=== PATIENT | female | born 1995 | race Caucasian/White ===

== ENCOUNTER 2018-06-03 16:32 | Emergency (ER) | payer OTHER ==
[2018-06-03 18:17] VITALS: BP 121/74
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
== END 2018-06-03 18:27 | disposition home or self-care (01) ==
LOC: ER 16:32
DX: O9A.211 Injury, poisoning and certain other consequences of external causes complicating pregnancy, first trimester (principal); O26.891 Other specified pregnancy related conditions, first trimester; R10.30 Lower abdominal pain, unspecified; X58.XXXA Exposure to other specified factors, initial encounter; Z3A.12 12 weeks gestation of pregnancy
CPT/HCPCS: 99283

== ENCOUNTER 2018-11-30 16:49 | Inpatient (IN) | payer OTHER ==
[2018-11-30 17:34] LABS: HEMATOCRIT 29.6 % (36.0-47.0); HEMOGLOBIN 9.4 g/dL (12.0-15.5); MEAN CORPUSCULAR HEMOGLOBIN 23.5 pg (27.0-33.4); MEAN CORPUSCULAR HGB CONC 31.8 g/dL (32.0-36.0); MEAN CORPUSCULAR VOLUME 74 fl (80-97); PLATELET COUNT 196 10^3/uL (150-450); RED CELL DISTRIBUTION WIDTH 18.2 % (11.5-14.0); WHITE BLOOD COUNT 7.6 10^3/uL (4.0-10.5)
[2018-11-30 17:45] LABS: APPEARANCE,URINE CLOUDY; BILIRUBIN,URINE NEGATIVE (NEGATIVE); COLOR,URINE YELLOW; GLUCOSE, URINE NEGATIVE (NEGATIVE); KETONES,URINE NEGATIVE (NEGATIVE); LEUKOCYTE ESTERASE,URINE SMALL (NEGATIVE); NITRITE,URINE NEGATIVE (NEGATIVE); PROTEIN,URINE NEGATIVE (NEGATIVE); URINE SPECIFIC GRAVITY 1.011; UROBILINOGEN,URINE NEGATIVE mg/dL (<2.0)
[2018-11-30 17:53] LABS: ALANINE AMINOTRANSFERASE 18 U/L (9-52); ALBUMIN 3.3 g/dL (3.5-5.0); ALKALINE PHOSPHATASE 187 U/L (38-126); ANION GAP 10 (5-19); ASPARTATE AMINO TRANSFERASE 15 U/L (14-36); BILIRUBIN,DIRECT 0.2 mg/dL (0.0-0.4); BILIRUBIN,TOTAL 0.3 mg/dL (0.2-1.3); BLOOD UREA NITROGEN 11 mg/dL (7-20); CALCIUM 8.9 mg/dL (8.4-10.2); CARBON DIOXIDE 21 mmol/L (22-30); CHLORIDE 107 mmol/L (98-107); GLUCOSE 77 mg/dL (75-110); POTASSIUM 4.4 mmol/L (3.6-5.0); SODIUM 137.8 mmol/L (137-145); TOTAL PROTEIN 6.3 g/dL (6.3-8.2); URIC ACID 5.9 mg/dL (2.5-6.2)
--- NOTE | 2018-11-30 17:53 | Non Stress Test Report ---
Non Stress Test Datetime Report Generated by CPN: 11/30/2018 17:53 DEMOGRAPHIC EGA NST: 37.4 INDICATION Indication for Study: Ordered by Provider MONITORING Monitor Explained: Monitor Explained; Test Explained; Patient Verbalized Understanding Time on Monitor: 11/30/2018 17:03 Time off Monitor: 11/30/2018 17:52 NST Duration: 49 NST INTERVENTIONS NST Interventions: PO Hydration Physician Notified NST: Dr. Parisi BABY A: [id number] BABY A Movement : Present Contraction Frequency : none FHR Baseline : 120 Accelerations : 15X15 Decelerations : None Variability : Moderate 6-25bpm NST Review: Meets Criteria for Reactive NST NST Review and Verified By : Eveline Worrell RN NST Results: Reactive NST REPORT Report Trigger: Send Report
[2018-11-30 18:03] LABS: URINE AMPHETAMINES SCREEN NEGATIVE; URINE BARBITURATES SCREEN NEGATIVE; URINE BENZODIAZEPINES SCREEN NEGATIVE; URINE COCAINE SCREEN NEGATIVE; URINE MARIJUANA (THC) SCREEN NEGATIVE; URINE METHADONE SCREEN NEGATIVE; URINE PHENCYCLIDINE SCREEN NEGATIVE
[2018-11-30 18:09] LABS: UR PRO/CREAT RATIO RESULT 0.3 mg/mg (0.0-0.2); URINE PROTEIN 23.2 mg/dL (<12)
[2018-11-30] MEDS ORDERED: RINGERS SOLUTION,LACTATED 1,000 ML IV ONE (19:12)
--- NOTE | 2018-11-30 19:27 | Admission Physical ---
Datetime Report Generated by CPN: 11/30/2018 19:26 CURRENT ADMISSION Chief Complaint: Other Chief Complaint Other: PreE Indication for Induction: PreEclampsia Admit Impression : Term, Intrauterine ; No Active Labor; Intact Membranes; Induction of Labor Admit Plan: Admit to Unit; Initiate Labor Induction Protocol ALLERGIES Medication Allergies: No Medication Allergies: No Known Allergies (11/30/2018) Latex: No Latex Allergies OBSTETRICAL HISTORY EDC: 12/17/2018 00:00 : 1 Para: 0 Gestational Diabetes: No Rh Sensitization: No Incompetent Cervix: No BASILIA: No Infertility: No ART Treatment: No Uterine Anomaly: No IUGR: No Hx Previous C/S: No Macrosomia: No Hx Loss/Stillborn: No PIH: No Hx : No Placenta Previa/Abruption: No Depression/PP Depression: No PTL/PROM: No Post Hemorrhage: No Current Procedures: Ultrasound Obstetrical History Comments: G1- Current SEE RECORDS Alcohol: No Marijuana : No Cocaine: No Other Illicit Drugs: No Cigarettes: Never Smoker. 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 Heart Disease: No Hosp/Surgery: No Autoimmune Disorder: No Anesthetic Complications: No Kidney Disease: No Abnormal Pap Smear: No Neuro/Epilepsy: No Psychiatric Disorders: No Other Medical Diseases: No Hepatitis/Liver Disease: No Significant Family History: No Varicosities/Phlebitis: No Trauma/Violence : No Thyroid Dysfunction: No INFECTIOUS HISTORY Gonorrhea: No Genital Herpes: No Chlamydia: No Tuberculosis: No Syphilis: No Hepatitis: No HIV/AIDS Exposure: No Rash or Viral Illness: No HPV: No PHYSICAL EXAM General: Normal HEENT: Normal Neurologic: Normal Thyroid: Normal Heart: Normal Lungs: Normal Breast: Deferred Back: Normal Abdomen: Abnormal Genitourinary Exam: Normal Extremities: Abnormal DTRs: Abnormal Pelvic Type: Adequate Physical Exam Comments: 3+ DTRs, Bilateral LE swelling. PUPPs on abdomen, gravid Vital Signs: Reviewed VAGINAL EXAM Dilatation: 1 Effacement: 25 Station: -3 Contraction Comments: irreg MEMBRANES Membranes: Intact FETUS A EGA: 37.4 Monitoring: External US FHR- Baseline: 120 Variability: Moderate 6-25bpm Accelerations: 15X15 Decelerations: None FHR Category: Category I Presentation: Vertex Admit Comment: 23yo at 37+4ega presents to labor and delivery for PreE w/u. She is having irregular ctx. She reports FULLER not improved. Brisk reflexes noted. P:C ratio elevated at 0.3 BPs now elevated 4 hours apart. BP in the office 172/108. PUPPs - normal LFTs and normal bile acids. Failed 1 hr GTT - passed 3 hr GTT. High weight gain in - 50#. EFW 5#8oz at 33wks. EFW approx 7-8#now. Admit for IOL with cytotec/pitocin/Cooks catheter. Reviewed plan with patient. Of note FOB mother is on this floor and dying of cancer. Patient and family tearful regarding dx and MIL dying but consolable and all questions answered. PLANS FOR LABOR AND DELIVERY Labor and Delivery: None Pain Management: Epidural Feeding Preference: Breast Benefit of Breast Feed Discussed: Yes Circumcision: Yes INFORMED CONSENT Informed Consent Obtained: Vaginal Delivery; Induction of Labor; Risks, Benefits and Alternatives Discussed Signature: with User ID: [email or web address]
[2018-11-30] MEDS ORDERED: MISOPROSTOL 0.1 MG TABLET ONE (21:22)
[2018-11-30] MEDS: RINGERS SOLUTION,LACTATED 1,000 ML IV PRN (21:30)
[2018-11-30] MEDS ORDERED: MISOPROSTOL 0.1 MG TABLET PO SCH (22:00)
[2018-11-30] MEDS ORDERED: MISOPROSTOL 0.1 MG TABLET PV ONE (22:00)
[2018-11-30] MEDS ORDERED: ACETAMINOPHEN 325 MG TABLET ONE (22:24)
[2018-11-30] MEDS ORDERED: ACETAMINOPHEN 325 MG TABLET PO ONE (22:59)
[2018-12-01] MEDS ORDERED: NALBUPHINE HCL INJ 10 MG/1 ML AMPULE ONE (00:23)
[2018-12-01] MEDS ORDERED: NALBUPHINE HCL INJ 10 MG/1 ML AMPULE INJ ONE (00:23)
[2018-12-01] MEDS ORDERED: OXYTOCIN/NORMAL SALINE 20 UNIT/1,000 ML RTUINJ IV PRN (01:55)
[2018-12-01] MEDS ORDERED: LIDOCAINE 1% INJ-PF (10 MG/ML) 30 ML SDV ONE (02:34)
[2018-12-01] MEDS ORDERED: OXYTOCIN 10 UNIT/ML VIAL ONE (02:34)
[2018-12-01] MEDS ORDERED: OXYTOCIN/NORMAL SALINE 20 UNIT/1,000 ML RTUINJ ONE (02:34)
[2018-12-01] MEDS ORDERED: MISOPROSTOL 0.2 MG TABLET ONE (02:34)
[2018-12-01] MEDS ORDERED: DEXTROSE 5%-LACTATED RINGERS 1,000 ML IV PRN (04:01)
[2018-12-01] MEDS ORDERED: ONDANSETRON HCL INJ/PF 4 MG/2 ML SDV IV ONE (04:02)
[2018-12-01] MEDS ORDERED: EPHEDRINE SULFATE INJ 50 MG/1 ML AMPULE ONE (17:28)
[2018-12-01] MEDS ORDERED: LIDOCAINE 1.5%/EPINEPHRINE INJ 5 ML AMP ONE (17:29)
[2018-12-01] MEDS ORDERED: FENTANYL/BUPIVACAINE/NS/PF 300 MCG/150 ML RTUINJ EPI ONE (17:29)
[2018-12-01] MEDS ORDERED: BUPIVACAINE HCL 0.25 % INJ/PF (2.5 MG/1 ML) 30 ML VIAL ONE (17:29)
[2018-12-01] MEDS: RINGERS SOLUTION,LACTATED 1,000 ML IV PRN (20:14)
[2018-12-01] MEDS ORDERED: IBUPROFEN 800 MG TABLET ONE (23:05)
--- NOTE | 2018-12-01 23:44 | Warning Signs in Babies ---
VOD Warning Signs Datetime Report Generated by [facility]: 12/01/2018 23:44 VOD#608 -Warning Signs in Babies: Viewed with Parent(s)/Family (12/01/2018 23:44:Elida Lynn RN)
--- NOTE | 2018-12-02 00:17 | Delivery Summary ---
Del Sum A-C Datetime Report Generated by CPN: 12/02/2018 00:17 DELIVERY PERSONNEL DELIVERY PERSONNEL: [id number] Delivery Doctor:: Tessy Dewitt MD Labor and Delivery Nurse:: Elida Lynn RN Nursery Nurse:: Kayla Thomas RN Broadcast Operations Manager/SCRUM PROJECT MANAGER: Mayra Ross, ST MATERNAL INFORMATION Delivery Anesthesia: Epidural Medications After Delivery: Pitocin Drip 20 Units/1000ml NSS; Cytotec 1000mcg Per Rectum/Vagina Estimated Blood Loss (ml): 200 Maternal Complications: None Provider Comments: of a viable male at 2232 w/ an OA with nuchal cord x 1 and left compound hand presentation; APGARS 7, 9; 2nd degree left vaginal lac LABOR SUMMARY EDC: 12/17/2018 00:00 No. Babies in Womb: 1 Attempted: No Labor Anesthesia: Epidural LABOR INFORMATION Reason for Induction: Pre-Eclampsia Onset of Labor: 12/01/2018 15:29 Complete Dilatation: 12/01/2018 21:45 Cervical Ripening Agents: Parada Balloon Other Ripening Agents: Cooks catheter Oxytocin: Induction Group B Beta Strep: Negative Antibiotics # of Doses: 0 Steroids Given: None Reason Steroids Not Administered: Not Applicable MEMBRANES Membranes Rupture Method: Artificial Rupture of Membranes: 12/01/2018 15:29 Length of Rupture (hr): 7.05 Amniotic Fluid Color: Clear Amniotic Fluid Amount: Large Amniotic Fluid Odor: Normal STAGES OF LABOR Stage 1 hr: 6 Stage 1 min: 16 Stage 2 hr: 0 Stage 2 min: 47 Stage 3 hr: 0 Stage 3 min: 6 Total Time in Labor hr: 7 Total Time in Labor min: 9 VAGINAL DELIVERY Episiotomy: None Laceration #1: Vaginal Laceration Extension #1: Second Degree Laceration Repair: Yes Laceration Repair Note: Repaired with 2-0 Vicryl Sponge Count Correct: N/A Sharps Count Correct: Yes CSECTION DELIVERY Primary Indication: N/A Secondary Indication: N/A CSection Incidence: N/A Labor: N/A Elective: N/A CSection Incision: N/A BABY A INFORMATION Delivery Date/Time: 12/01/2018 22:32 Method of Delivery: Vaginal Born in Route : No : N/A Forceps: N/A Vacuum Extraction: N/A Shoulder Dystocia : No PRESENTATION/POSITION BABY A Presentation: Cephalic Cephalic Presentation: Vertex Vertex Position: Right Occipital Anterior Breech Presentation: N/A PLACENTA INFORMATION BABY A Placenta Delivery Time : 12/01/2018 22:38 Placenta Method of Delivery: Spontaneous Placenta Status: Delivered SCORES BABY A Heart Rate 1 min: >100 bpm Resp Effort 1 min: Absent Reflex Irritability 1 min: Cough or Sneeze or Pulls Away Muscle Tone 1 min: Active Motion Color 1 min: Body [place], Extremities Blue Resuscitation Effort 1 min: Tactile Stimulation SCORE 1 MIN: 7 Heart Rate 5 min: >100 bpm Resp Effort 5 min: [place] Reflex Irritability 5 min: Cough or Sneeze or Pulls Away Muscle Tone 5 min: Active Motion Color 5 min: Body [place], Extremities Blue Resuscitation Effort 5 min: N/A SCORE 5 MIN: 9 INFORMATION BABY A Gestational Age at Delivery: 37.5 Gestational Status: Early Term- 37- 38.6 Weeks Outcome : Liveborn Infant Condition : Stable Infant Sex: Male IDENTIFICATION BABY A Verification Date/Time: 12/01/2018 23:11 ID Band Number: [id number] Mother's Name Verified: Yes Infant RN Verifying Infant: ADarlyn Lynn, RN Additional Verifying Personnel: Patrizia Thomas RN WEIGHT/LENGTH BABY A Infant Birthweight (gm): 3366 Weight (lb): 7 Infant Weight (oz): 7 Length (in): 20.00 Infant Length (cm): 50.80 CORD INFORMATION BABY A No. Cord Vessels: 3 Nuchal Cord : Around Neck x1, Loose Cord Blood Taken: Yes-For Storage (Mom's Blood type +) Infant Suction: Mouth ASSESSMENT BABY A Skin to Skin: Yes Skin to Skin Time (min): 80 BABY B INFORMATION : N/A SIGNATURES Signature: with User ID: [email or web address]
[2018-12-02] MEDS ORDERED: BENZOCAINE/MENTHOL AEROSOL SPRAY 56 ML TOP PRN (00:39)
[2018-12-02] MEDS ORDERED: DIPH/PERTUSS(ACELL)/TETANUS VAC/PF 0.5 ML SYR (>=10YO) IM PRN (00:39)
[2018-12-02] MEDS ORDERED: ACETAMINOPHEN WITH CODEINE #3 TABLET PO PRN ×2 (00:39)
[2018-12-02] MEDS ORDERED: DIBUCAINE 1% OINTMENT 56 GM TP PRN (00:39)
[2018-12-02] MEDS ORDERED: OXYTOCIN/NORMAL SALINE 20 UNIT/1,000 ML RTUINJ IV PRN (00:39)
[2018-12-02] MEDS ORDERED: ZOLPIDEM TARTRATE 5 MG TABLET PO PRN (00:39)
[2018-12-02] MEDS: IBUPROFEN 800 MG TABLET PO SCH ×3 (06:25→21:06)
[2018-12-02 07:56] LABS: MEAN CORPUSCULAR HEMOGLOBIN 23.2 pg (27.0-33.4); MEAN CORPUSCULAR HGB CONC 31.4 g/dL (32.0-36.0); MEAN CORPUSCULAR VOLUME 74 fl (80-97); PLATELET COUNT 185 10^3/uL (150-450); RED BLOOD COUNT 3.39 10^6/uL (3.72-5.28); WHITE BLOOD COUNT 12.3 10^3/uL (4.0-10.5)
[2018-12-02 07:59] LABS: HEMOGLOBIN 7.9 g/dL (12.0-15.5)
[2018-12-02] MEDS ORDERED: IRON SUCROSE COMPLEX INJ/PF 100 MG/5 ML SDV IV ONE (09:00)
[2018-12-02] MEDS: PRENATAL VITAMIN W DHA CAPSULE PO SCH (09:23)
[2018-12-02] MEDS: SENNOSIDES/DOCUSATE 8.6-50 MG 1 EACH TABLET PO SCH (09:23)
[2018-12-02] MEDS: DOCUSATE SODIUM 100 MG CAPSULE PO SCH ×2 (09:24→18:14)
[2018-12-02] MEDS: FERROUS SULFATE 325 MG TABLET PO SCH ×2 (09:24→18:14)
--- NOTE | 2018-12-02 11:20 | PDOC PROGRESS REPORT ---
Subjective-OB Progress Note for:: 12/02/18 Subjective: Doing well, no c/o, OOB in room Physical Exam (OB) Vital Signs: Temp Pulse Resp BP Pulse Ox 97.9 F 80 18 120/81 100 12/02/18 07:43 12/02/18 07:43 12/02/18 07:43 12/02/18 07:43 12/02/18 07:43 Intake & Output 12/01/18 12/02/18 12/03/18 06:59 06:59 06:59 Intake Total 1000 1000 Balance 1000 1000 - PIH/Pre-Eclampsia DTR's: 2 + Clonus: Negative Headache: Absent Epigastric Pain: No Visual Changes: No - Lochia Lochia Amount: Small 10-25 ml Lochia Color: Rubra/Red - Abdomen Description: Soft, Round Hernia Present: No Fundal Description: Firm, Midline Fundal Height: u/u - u/2 Objective-Diagnostic Laboratory: 12/02/18 07:28 11/30/18 17:21 12/02/18 07:28 WBC 12.3 H RBC 3.39 L Hgb 7.9 L Hct 25.0 L MCV 74 L MCH 23.2 L MCHC 31.4 L RDW 18.0 H Plt Count 185 Assessment and Plan(PN) - Assessment and Plan (1) Normal vaginal delivery Is this a current diagnosis for this admission?: Yes (2) Anemia affecting in third trimester Is this a current diagnosis for this admission?: Yes (3) Pre-eclampsia in third trimester Is this a current diagnosis for this admission?: Yes - Time Spent with Patient Time with patient: Less than 15 minutes Medications reviewed and adjusted accordingly: Yes - Disposition Anticipated Discharge: Home Within: within 24 hours
[2018-12-03] MEDS: IBUPROFEN 800 MG TABLET PO SCH ×2 (05:34→13:14)
[2018-12-03 08:46] VITALS: BP 120/70
[2018-12-03] MEDS: DOCUSATE SODIUM 100 MG CAPSULE PO SCH ×2 (09:04→17:04)
[2018-12-03] MEDS: SENNOSIDES/DOCUSATE 8.6-50 MG 1 EACH TABLET PO SCH (09:04)
[2018-12-03] MEDS: FERROUS SULFATE 325 MG TABLET PO SCH ×2 (09:04→17:04)
[2018-12-03] MEDS: PRENATAL VITAMIN W DHA CAPSULE PO SCH (09:04)
--- NOTE | 2018-12-03 09:31 | PDOC PROGRESS REPORT ---
Subjective-OB Progress Note for:: 12/03/18 Subjective: Doing well, ready to go home, [facility] thinks it is time to go, MIL being transferred this am Physical Exam (OB) Vital Signs: Temp Pulse Resp BP Pulse Ox 98.4 F 89 16 120/70 99 12/03/18 08:19 12/03/18 08:19 12/03/18 08:19 12/03/18 08:19 12/03/18 08:19 Intake & Output 12/02/18 12/03/18 12/04/18 06:59 06:59 06:59 Intake Total 1000 200 Balance 1000 200 - PIH/Pre-Eclampsia DTR's: 2 + Clonus: Negative Headache: Absent Epigastric Pain: No Visual Changes: No - Lochia Lochia Amount: Small 10-25 ml Lochia Color: Rubra/Red - Abdomen Description: Soft, Round Hernia Present: No Fundal Description: Firm Fundal Height: u/u - u/2 Objective-Diagnostic Laboratory: 12/02/18 07:28 11/30/18 17:21 Assessment and Plan(PN) - Assessment and Plan (1) Normal vaginal delivery Is this a current diagnosis for this admission?: Yes (2) Anemia affecting in third trimester Is this a current diagnosis for this admission?: Yes (3) Pre-eclampsia in third trimester Is this a current diagnosis for this admission?: Yes - Time Spent with Patient Time with patient: Less than 15 minutes Medications reviewed and adjusted accordingly: Yes - Disposition Anticipated Discharge: Home Within: within 24 hours
--- NOTE | 2018-12-03 09:35 | PDOC DISCHARGE SUMMARY ---
Addendum entered and electronically signed by CLAUDIO DELACRUZ CNM 12/06/18 21:18: Final Diagnosis Discharge Date: 12/03/18 - Final Diagnosis (1) Normal vaginal delivery Is this a current diagnosis for this admission?: Yes (2) Anemia affecting in third trimester Is this a current diagnosis for this admission?: Yes (3) Pre-eclampsia in third trimester Is this a current diagnosis for this admission?: Yes Original Note: Final Diagnosis Discharge Date: 12/03/18 - Final Diagnosis (1) Normal vaginal delivery Is this a current diagnosis for this admission?: Yes (3) Pre-eclampsia in third trimester Is this a current diagnosis for this admission?: Yes Discharge Data - Discharge Medication Prescriptions: Ferrous Sulfate [Feosol 325 mg Tablet] 325 mg PO BID #60 tablet Home Medications: 105/Iron/Folic AC/Dha [Prena1 True Combo Pack] 1 each PO DAILY 11/30/18 Ferrous Sulfate [Feosol 325 mg Tablet] 325 mg PO BID #60 tablet 12/03/18 Gestational Age: 37.5 Reason(s) for Admission: Induction of Labor, [facility] Admission Note: Pre-eclampsia Procedures: NST, Ultrasound Intrapartum Procedure(s): Spontaneous Vaginal Delivery - NC x 1, left compound hand Complication(s): Laceration-Vaginal Laceration-Degree: 2nd - [place] Data Baby 1 Male at 1 minute: 7 at 5 minutes: 9 Home with Mother: Yes Complications: No - Diagnosis Test Laboratory: Temp Pulse Resp BP Pulse Ox 98.4 F 89 16 120/70 99 12/03/18 08:19 12/03/18 08:19 12/03/18 08:19 12/03/18 08:19 12/03/18 08:19 11/30/18 11/30/18 12/02/18 16:56 17:21 07:28 RBC 4.00 3.39 L Hgb 9.4 L 7.9 L Hct 29.6 L 25.0 L Urine Opiates Screen NEGATIVE - Discharge information/Instructions Discharge Activity: Activity As Tolerated, No Lifting Over 10 Pounds, No Lifting/Push/Pulling, Pelvic Rest Discharge Diet: As Tolerated, Regular Disposition: HOME, SELF-CARE Follow [facility]: [facility] in: 2, Weeks
== END 2018-12-03 17:58 | disposition home or self-care (01) | DRG 806 ==
LOC: LC 16:49 → LR 19:38 → 2N 12-02 00:45
PROVIDERS: ADMIT Student in an Organized Health Care Education/Training Program; ATTEND Student in an Organized Health Care Education/Training Program
PROC: 10E0XZZ Delivery of Products of Conception, External Approach (ICD-10-PCS; principal; 2018-12-01)
PROC: 0KQM0ZZ Repair Perineum Muscle, Open Approach (ICD-10-PCS; 2018-12-01)
PROC: 3E033VJ Introduction of Other Hormone into Peripheral Vein, Percutaneous Approach (ICD-10-PCS; 2018-12-01)
PROC: 10907ZC Drainage of Amniotic Fluid, Therapeutic from Products of Conception, Via Natural or Artificial Opening (ICD-10-PCS; 2018-12-01)
PROC: 0U7C7ZZ Dilation of Cervix, Via Natural or Artificial Opening (ICD-10-PCS; 2018-12-01)
PROC: 4A1HX4Z Monitoring of Products of Conception, Cardiac Electrical Activity, External Approach (ICD-10-PCS; 2018-12-01)
DX: O15.1 Eclampsia complicating labor (principal); O71.4 Obstetric high vaginal laceration alone; Z37.0 Single live birth; O32.6XX0 Maternal care for compound presentation, not applicable or unspecified; O69.81X0 Labor and delivery complicated by cord around neck, without compression, not applicable or unspecified; O99.02 Anemia complicating childbirth; Z3A.37 37 weeks gestation of pregnancy
CPT/HCPCS: 36415; 80053; 80307; 81005; 82570; 83615; 84156; 84550; 85027; 86592; 86850; 86900; 86901; 94760; C1726; J1756; J2300; J2590; J3010; J3490